=== PATIENT | female | born 1995 | race Caucasian/White ===

== ENCOUNTER 2019-02-26 17:33 | Emergency (ER) | payer OTHER ==
--- NOTE | 2019-02-26 18:08 | ER Document Report ---
HPI - HPI Patient complains to provider of: skin irritation around ostomy Time Seen by Provider: 02/26/19 17:40 Onset: Other - 2 weeks Onset/Duration: Persistent Quality of pain: Achy Severity: Moderate Pain Level: 3 Context: This 23-year-old female presents emergency department with complaints of skin irritation around her ostomy. Patient reports she has history of Crohn's. She had a colostomy placed 2 years ago. She reports approximately 2 weeks ago she started having skin irritation or where the pouch is on her skin. She reports s he has had this in the past and has been able to take care of it. This time it is not gone away. She reports she takes a shower every day keep the area very clean. She was seen by her primary care provider Dr. Coley who has referred her to the wound clinic. She has an appointment at 04 March. She reports in the meantime she is been taking Motrin for the pain which has not helped. She reports at times the skin will bleed. She has used skin prep on the area as well as skin powder without relief of symptoms. Associated Symptoms: None Exacerbated by: Other Relieved by: Denies Similar symptoms previously: Yes Recently seen / treated by doctor: Yes - CONSTITUTIONAL Constitutional: DENIES: Fever, Chills - REPRODUCTIVE LMP: 02/18/19 Reproductive: DENIES: : Past Medical History - General Information source: Patient - Social History Smoking Status: Unknown if Ever Smoked Cigarette use (# per day): No Frequency of alcohol use: Occasional Drug Abuse: None Occupation: [employer] Family History: None Patient has suicidal ideation: No Patient has homicidal ideation: No Renal/ Medical History: Denies: Hx Peritoneal Dialysis GI Medical History: Reports: Hx Crohn's Disease Past Surgical History: Reports: Hx Abdominal Surgery - colostomy placement Vertical Provider Document - CONSTITUTIONAL Agree With Documented VS: Yes Exam Limitations: No Limitations General Appearance: WD/WN, No Apparent Distress - INFECTION CONTROL TRAVEL OUTSIDE OF THE [place]. IN LAST 30 DAYS: No - HEENT HEENT: Atraumatic, Normocephalic - NECK Neck: Supple - RESPIRATORY Respiratory: No Respiratory Distress - CARDIOVASCULAR Cardiovascular: Regular Rate - GI/ABDOMEN Gastrointestinal: Abdomen Soft, Abdomen Non-Tender - MUSCULOSKELETAL/EXTREMETIES Musculoskeletal/Extremeties: ALAYNA HIGH - NEURO Level of Consciousness: Awake, Alert, Appropriate Motor/Sensory: No Motor Deficit - DERM Integumentary: Warm, Dry Adult Front & Back Diagram: 1 - ostomy in place with erythema around stoma, slight warmth. one small area ~ less than 1mm, pinprick size that looks like it could have bled. the posterior area below the ostomy has more erythema than the anterior portion. Course - Re-evaluation Re-evalutation: 02/26/19 19:25 This 23-year-old female with history of colostomy due to Crohn's presents today with complaints of skin irritation. Patient reports she is had skin irritation for the past 2 weeks. She has had this before but usually it goes away. She followed up with her primary care provider Dr. Coley and has been referred to the wound clinic. The area was cleaned with normal saline and soap. We utilized the hospital's ostomy paste and powder. The powder did not allow us to stick the pouch on easily even after it was moisturized but eventually we were able to secure the pouch. A prescription for nystatin powder was written for the patient. She was instructed to keep the area clean applied the power her barrier cream and foll ow-up with wound care clinic next week as scheduled. She verbalized understanding to all instructions. Dictation of this chart was performed using voice recognition software; therefore, there may be some unintended grammatical errors. - Vital Signs Vital signs: Temp Pulse Resp BP Pulse Ox 98.7 F 87 16 138/78 H 98 02/26/19 17:37 02/26/19 17:37 02/26/19 17:37 02/26/19 17:37 02/26/19 17:37 Discharge - Discharge Clinical Impression: ostomy skin irritation Condition: Stable Disposition: HOME, SELF-CARE Instructions: Nystatin ([facility]) Additional Instructions: *You have been treated for colostomy skin irritation *Monitor the site for signs of increasing infection such as increasing pain, redness, swelling, warmth *Keep the area clean *apply nystatin as prescribed- ). If necessary, the powder can be lightly blotted with a moist finger or skin sealant to assure a pouchable surface for skin barrier powder) *Follow up with the wound care clinic as scheduled next week *Return to ED for signs of increasing infection, worsening condition, changes, needs Prescriptions: Nystatin [Mycostatin Topical Powder 15 gm] 1 applic TP BID #1 bottle Referrals: PADMA COLEY MD [Primary Care Provider] - Follow up in 3-5 days [facility] [Provider Group] - Follow up in 1 week (follow up as scheduled)
[2019-02-26] MEDS ORDERED: OXYCODONE-ACETAMINOPHEN 5-325 MG TABLET PO ONE (19:23)
[2019-02-26] MEDS ORDERED: HYDROCODONE/ACETAMINOPHEN 5-325 MG (6 TAB/ER DISP) PO PRN (20:02)
[2019-02-26 20:26] VITALS: BP 134/77
== END 2019-02-26 20:27 | disposition home or self-care (01) ==
LOC: ER 17:33
DX: K94.09 Other complications of colostomy (principal)

== ENCOUNTER 2019-03-31 15:30 | Emergency (ER) | payer OTHER ==
[2019-03-31] MEDS ORDERED: PROCHLORPERAZINE EDISYLATE INJ 10 MG/2 ML VIAL IV ONE (15:39)
[2019-03-31] MEDS ORDERED: DIPHENHYDRAMINE HCL 50 MG/ML VIAL IV ONE (15:39)
[2019-03-31] MEDS ORDERED: KETOROLAC TROMETHAMINE INJ/PF 30 MG/1 ML SDV IV ONE (15:39)
[2019-03-31] MEDS ORDERED: NORMAL SALINE 1000 ML 1,000 ML IV ONE (15:39)
--- NOTE | 2019-03-31 15:40 | ER Document Report ---
ED Medical Screen (RME) - General Stated Complaint: VOMITING Time Seen by Provider: 03/31/19 15:39 Primary Care Provider: PADMA FINK MD [Primary Care Provider] - Follow up as needed Information source: Patient Notes: Patient presents complaining of migraine headache that started today. Patient reports light sensitivity with nausea and vomiting. Patient reports vomiting x1 episode. Patient denies any fever or head injury. hx: Crohn's, migraine, bowel resection, colostomy I have greeted and performed a rapid initial assessment of this patient. A comprehensive ED assessment and evaluation of the patient, analysis of test results and completion of the medical decision making process will be conducted by additional ED providers. TRAVEL OUTSIDE OF THE U.S. IN LAST 30 DAYS: No - Related Data Allergies/Adverse Reactions: No Known Allergies Allergy (Verified 03/31/19 15:38) Past Medical History Renal/ Medical History: Denies: Hx Peritoneal Dialysis GI Medical History: Reports: Hx Crohn's Disease Past Surgical History: Reports: Hx Abdominal Surgery - colostomy placement Physical Exam - Vital signs Vitals: Temp Pulse Resp BP Pulse Ox 98.6 F 93 14 134/79 H 97 03/31/19 15:33 03/31/19 15:03/31/19 15:03/31/19 15:03/31/19 15:33 - Neurological Neuro grossly intact: Yes Cognition: Normal Jacobson Coma Scale Eye Opening: Spontaneous Jacobson Coma Scale Verbal: Oriented Jacobson Coma Scale Motor: Obeys Commands Aminata Coma Scale Total: 15 Speech: Normal Course - Vital Signs Vital signs: Temp Pulse Resp BP Pulse Ox 98.6 F 93 14 134/79 H 97 03/31/19 15:03/31/19 15:03/31/19 15:03/31/19 15:03/31/19 15:33 Doctor's Discharge - Discharge Referrals: PADMA FINK MD [Primary Care Provider] - Follow up as needed
--- NOTE | 2019-03-31 17:50 | ER Document Report ---
ED General - General Chief Complaint: Headache Stated Complaint: VOMITING Time Seen by Provider: 03/31/19 15:39 Primary Care Provider: PADMA FINK MD [Primary Care Provider] - Follow up as needed TRAVEL OUTSIDE OF THE [place] IN LAST 30 DAYS: No - HPI Notes: Patient with history of migraines presents with migraine started earlier this morning. No recent fevers cough congestion chest pain shortness of breath or illnesses. She states the migraine is on the right side of her head and throbs down to the right side of her neck. She also has photophobia. She states this is similar to her many previous migraines. She does not take any medication for migraines or any abortive medications. Migraines cause her to have intermittent vomiting as well. - Related Data Allergies/Adverse Reactions: No Known Allergies Allergy (Verified 03/31/19 15:38) Past Medical History - General Information source: Patient - Social History Smoking Status: Never Smoker Family History: None Patient has suicidal ideation: No Patient has homicidal ideation: No Renal/ Medical History: Denies: Hx Peritoneal Dialysis GI Medical History: Reports: Hx Crohn's Disease Past Surgical History: Reports: Hx Abdominal Surgery - colostomy placement Review of Systems - Review of Systems Constitutional: No symptoms reported EENT: No symptoms reported Cardiovascular: No symptoms reported Respiratory: No symptoms reported Gastrointestinal: See HPI Genitourinary: No symptoms reported Female Genitourinary: No symptoms reported Musculoskeletal: No symptoms reported Skin: No symptoms reported Hematologic/Lymphatic: No symptoms reported Neurological/Psychological: See HPI Physical Exam - Vital signs Vitals: Temp Pulse Resp BP Pulse Ox 98.6 F 93 14 134/79 H 97 03/31/19 15:33 03/31/19 15:33 03/31/19 15:33 03/31/19 15:33 03/31/19 15:33 - General General appearance: Appears well, Alert - HEENT Head: Normocephalic, Atraumatic Eyes: Normal Pupils: PERRL - Respiratory Respiratory status: No respiratory distress Chest status: Nontender Breath sounds: Normal Chest palpation: Normal - Cardiovascular Rhythm: Regular Heart sounds: Normal auscultation Murmur: No - Back Back: Normal, Nontender - Neurological Neuro grossly intact: Yes Cognition: Normal Orientation: AAOx4 Speech: Normal Cranial nerves: Normal Cerebellar coordination: Normal Course - Re-evaluation Re-evalutation: 03/31/19 17:48 Ill-appearing patient was provided migraine cocktail by triage staff. Patient's headache if was rated at 10 when she came and is down now until 4 5. She is neurologically intact and her migraines are similar to previous. Will provide Compazine pills to help at home. He is seen at [facility] and also discussed with her that she is to speak to them about abortive medications such as ergotamine or sumatriptans - Vital Signs Vital signs: Temp Pulse Resp BP Pulse Ox 98.6 F 93 14 134/79 H 97 03/31/19 15:33 03/31/19 15:33 03/31/19 15:33 03/31/19 15:33 03/31/19 15:33 Discharge - Discharge Clinical Impression: Migraine Qualifiers: Migraine type: unspecified Status migrainosus presence: without status migrain osus Intractability: not intractable Qualified Code(s): G43.909 - Migraine, unspecified, not intractable, without status migrainosus Condition: Good Disposition: HOME, SELF-CARE Instructions: Headache ([facility]), Antinausea Medication ([facility]) Prescriptions: Metoclopramide HCl [Reglan 10 mg Tablet] 1 tab PO ASDIR PRN #25 tablet PRN Reason: Referrals: PADMA FINK MD [Primary Care Provider] - Follow up as needed
[2019-03-31 18:15] VITALS: BP 102/52
== END 2019-03-31 18:15 | disposition home or self-care (01) ==
LOC: ER 15:30
DX: G43.909 Migraine, unspecified, not intractable, without status migrainosus (principal); H53.149 Visual discomfort, unspecified; R11.10 Vomiting, unspecified
CPT/HCPCS: J1200; J1885; J0780; J7030; 96361; 96374; 96375; 99283

== ENCOUNTER → 2019-11-29 | Outpatient (CLI) | payer OTHER ==
--- NOTE | 2019-11-29 12:19 | ER RDC ASSESSMENT REPORT ---
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 - Symptoms Subjective Fever([place] feverish): No Chills: No Muscule Aches: No Runny Nose: Yes Sore Throat: Yes Cough (New or worsening chronic cough): No Shortness of breath: No Nausea or Vomiting: No Headache: Yes Abdominal Pain: No Diarrhea(3 or more loose stools in last 24 hours): No - Do you have any of the following Chronic lung disease: Asthma or emphysema or COPD: No Cystic Fibrosis: No Diabetes: No High Blood Pressure: No Cardiovascular Disease: No Chronic Kidney Disease: No Chronic Liver Disease: No Chronic blood disorder like Sickle Cell Disease: No Weak immune system due to disease or medication: No Neurologic condition that limits movement: No Developmental delay - Moderate to Severe: No Recent (within past 2 weeks) or current : No Morbid Obesity (>100 pounds over ideal weight): No Obesity Comment: Aniceto 5'4" weight 175 pounds Other Comment: History of Crohn's disease - Objective Temperature: 97.0 F Pulse Rate: 98 Respiratory Rate: 20 Blood Pressure: 136/83 O2 Sat by Pulse Oximetry: 98 Objective: Given above, testing performed: If Testing Performed: Test Specimen Type Sent to General - General Information source: Patient Notes: Patient here at [facility] for COVID testing. States started feeling sick with a runny nose sore throat and headache almost a week ago. Denies fever cough muscle aches or chills. Denies abdominal pain. Has not contacted PCP at [facility] but will later today. - Related Data Allergies/Adverse Reactions: No Known Allergies Allergy (Verified 03/31/19 15:38) Past Medical History - General Information source: Patient - Social History Smoking Status: Never Smoker Family History: None Renal/ Medical History: Denies: Hx Peritoneal Dialysis GI Medical History: Reports: Hx Crohn's Disease Past Surgical History: Reports: Hx Abdominal Surgery - colostomy placement Physical Exam - General General appearance: Appears well, Alert In distress: None Notes: PHYSICAL EXAMINATION: GENERAL: Well-appearing and in no acute distress. HEAD: Atraumatic, normocephalic. EYES: sclera anicteric, conjunctiva are normal. ENT: nares patent. Moist mucous membranes. NECK: Normal range of motion, supple without lymphadenopathy LUNGS: CTAB and equal. No wheezes rales or rhonchi. Resp even and unlabored lung sounds clear. HEART: Regular rate and rhythm without murmurs ABDOMEN: Soft, nontender, normal bowel sounds, no guarding. EXTREMITIES: No cyanosis. NEUROLOGICAL: Normal speech. PSYCH: Normal mood, normal affect. SKIN: Warm, Dry, normal turgor, - Respiratory Respiratory status: No respiratory distress Breath sounds: Normal Chest palpation: Normal Diagnostic Results Laboratory Results: Patient informed of negative rapid strep and negative rapid flu results. pending strep culture pending cover testing results. Provided instructions regarding COVID to include: As a person under investigation for Covid 19, the [facility] and Human Services, division of public health advises you to adhere to the following guidance until your test results are reported to you. If your test result is positive, you will receive additional information from your provider and your local health department at that time. Remain at home until you are cleared by the health provider or public health authorities. Keep a log of visitors to your home, notify any visitors to your home of your isolation status. If you plan to move to a new address or leave the [facility], notify the local health department in your [facility]. Call your doctor or seek care if you have an urgent medical need. Before seeking medical care, call ahead to get instructions from the provider before arriving at the medical office clinic or hospital. Notify them that you are being tested for the virus that causes Covid 19 so that arrangements can be made, as necessary, to prevent transmission to others in the healthcare setting. Next, notify the local health department in your county. If a medical emergency arises and you need to call 911, inform the first responders that you are being tested for the virus that causes Covid 19. Next, notify the local health department in your county. Patient Education/Counseling Counseling/Education: Patient presents with upper respiratory symptoms worrisome for possible Covid 19. Patient does not have emergency worring symptoms such as difficulty breathing, shortness of breath, chest pain, pressure, confusion or cyanosis. Patient appears suitable for discharge. Patient instructed to follow up with PCP today at [facility]. To ED For persistent or worsening symptoms. Patient's vital signs are stable and patient is nontoxic in appearance. Good return prec autions have been discussed with patient, patient verbalized understanding and is agreeable with discharge plan of care at this time. RDC Discharge - Discharge Clinical Impression: COVID - 19 SCREENING Upper respiratory infection Qualifiers: URI type: unspecified URI Qualified Code(s): J06.9 - Acute upper respiratory infection, unspecified Condition: Stable Disposition: Home; Selfcare
[2019-11-29 12:21] VITALS: BP 136/83
[2019-11-29 13:39] LABS: A TYPE INFLUENZA AG NEGATIVE (NEGATIVE); B INFLUENZA AG NEGATIVE (NEGATIVE)
== END ==
LOC: RDC 11:50
PROVIDERS: ATTEND Nurse Practitioner Family
DX: J06.9 Acute upper respiratory infection, unspecified (principal); Z20.828 Contact with and (suspected) exposure to other viral communicable diseases; J02.9 Acute pharyngitis, unspecified; R09.89 Other specified symptoms and signs involving the circulatory and respiratory systems; R51 Headache
CPT/HCPCS: 87070; 87635; 87804; 87880; 99211; C9803

== ENCOUNTER 2020-01-13 06:54 | Emergency (ER) | payer OTHER ==
[2020-01-13 07:52] LABS: APPEARANCE,URINE CLOUDY; BILIRUBIN,URINE NEGATIVE (NEGATIVE); COLOR,URINE YELLOW; GLUCOSE, URINE NEGATIVE (NEGATIVE); KETONES,URINE NEGATIVE (NEGATIVE); LEUKOCYTE ESTERASE,URINE MODERATE (NEGATIVE); NITRITE,URINE NEGATIVE (NEGATIVE); PROTEIN,URINE 30 mg/dL (NEGATIVE); URINE SPECIFIC GRAVITY 1.027; UROBILINOGEN,URINE NEGATIVE mg/dL (<2.0)
[2020-01-13 08:42] LABS: ABSOLUTE BASOPHILS # (AUTO) 0.1 10^3/uL (0.0-0.2); ABSOLUTE EOSINOPHILS # (AUTO) 0.8 10^3/uL (0.0-0.6); ABSOLUTE LYMPHOCYTES (AUTO) 2.1 10^3/uL (0.5-4.7); ABSOLUTE MONOCYTES (AUTO) 0.8 10^3/uL (0.1-1.4); ABSOLUTE NEUT (AUTO) 6.8 10^3/uL (1.7-8.2); BASOPHILS % (AUTO) 1.3 % (0-2); EOSINOPHILS % (AUTO) 7.7 % (0-6); HEMOGLOBIN 12.5 g/dL (12.0-15.5); LYMPHOCYTES % (AUTO) 19.9 % (13-45); MEAN CORPUSCULAR HGB CONC 35.6 g/dL (32.0-36.0); MEAN CORPUSCULAR VOLUME 84 fl (80-97); PLATELET COUNT 456 10^3/uL (150-450); RED BLOOD COUNT 4.16 10^6/uL (3.72-5.28); RED CELL DISTRIBUTION WIDTH 13.7 % (11.5-14.0); SEGMENTED NEUTROPHILS % (AUTO) 64.1 % (42-78); TOTAL CELLS COUNTED % (AUTO) 100 %; WHITE BLOOD COUNT 10.7 10^3/uL (4.0-10.5)
[2020-01-13 08:58] LABS: ALBUMIN 3.8 g/dL (3.5-5.0); ALKALINE PHOSPHATASE 75 U/L (38-126); ANION GAP 7 (5-19); ASPARTATE AMINO TRANSFERASE 23 U/L (14-36); BILIRUBIN,TOTAL 0.4 mg/dL (0.2-1.3); BLOOD UREA NITROGEN 9 mg/dL (7-20); CALCIUM 9.2 mg/dL (8.4-10.2); CARBON DIOXIDE 22 mmol/L (22-30); CHLORIDE 109 mmol/L (98-107); GLUCOSE 116 mg/dL (75-110); POTASSIUM 3.8 mmol/L (3.6-5.0)
[2020-01-13] MEDS ORDERED: NORMAL SALINE 1000 ML 1,000 ML IV ONE (08:59)
[2020-01-13] MEDS ORDERED: MORPHINE SULFATE 10 MG/ML INJ IV ONE (09:00)
[2020-01-13] MEDS ORDERED: ONDANSETRON HCL INJ/PF 4 MG/2 ML SDV IV ONE (09:01)
[2020-01-13] MEDS ORDERED: DIPHENHYDRAMINE HCL 50 MG/ML VIAL IV ONE (09:01)
--- NOTE | 2020-01-13 11:33 | RADIOLOGY REPORT (SQ) ---
EXAM DESCRIPTION: CT ABD/PELVIS ORAL ONLY IMAGES COMPLETED DATE/TIME: 01/13/2020 10:46 am REASON FOR STUDY: abd pain/crohns with colostomy. seafood allergy COMPARISON: None. TECHNIQUE: CT scan of the abdomen and pelvis performed without intravenous or oral contrast. Images reviewed with lung, soft tissue, and bone windows. Reconstructed coronal and sagittal MPR images revi ewed. All images stored on PACS. All CT scanners at this facility use dose modulation, iterative reconstruction, and/or weight based d osing when appropriate to reduce radiation dose to as low as reasonably achievable (ALARA). [facility]: Dose Right [facility]: CareDose [facility]: Dose Right [facility]: Teradose 4D [facility]: Smart Chevia RADIATION DOSE: CT Rad equipment meets quality standard of care and radiation dose reduction techniq ues were employed. CTDIvol: 10.3 mGy. DLP: 516 mGy-cm.mGy. LIMITATIONS: None. FINDINGS: LOWER CHEST: No significant findings. No nodules or infiltrates. NON-CONTRASTED LIVER, SPLEEN, ADRENALS: Evaluation limited by lack of IV contrast. Calcified left ad renal gland. No identified significant masses. PANCREAS: No masses. No peripancreatic inflammatory changes. GALLBLADDER: No calcified stones. No inflammatory changes to suggest cholecystitis. RIGHT KIDNEY AND URETER: No cysts identified. No solid masses. No calcified stones. No hydronephrosis or hydroureter. LEFT KIDNEY AND URETER: No cysts identified. No solid masses. No calcified stones. No hydronephrosis or hydroureter. AORTA AND RETROPERITONEUM: No aneurysm. No retroperitoneal masses or adenopathy. BOWEL AND PERITONEAL CAVITY: Mild wall thickening in the region of the terminal ileum and cecum. No obstruction or acute mesenteric inflammatory changes. Colostomy in the left lower quadrant. No free fluid. APPENDIX: Normal. PELVIS, BLADDER, AND ABDOMINAL WALL:No abnormal masses. No free fluid. Unremarkable bladder. BONES: No acute findings. Mild sacroiliitis, right greater than left. OTHER: No other significant finding. IMPRESSION: Mild wall thickening in the region of the terminal ileum and cecum. Otherwise, No acute inflammatory changes or free fluid. TECHNICAL DOCUMENTATION: JOB ID: [id number] [id number] Quality ID # [id number]: Final reports with documentation of one or more dose reduction techniques (e.g., Au tomated exposure control, adjustment of the mA and/or kV according to patient size, use of iterative reconstruction technique) 2010 [employer]- All Rights Reserved Reading location - IP/workstation name: [employer]
[2020-01-13] MEDS ORDERED: DICYCLOMINE HCL INJ 20 MG/2 ML AMPULE IM ONE (12:24)
--- NOTE | 2020-01-13 12:45 | ER Document Report ---
Entered by JOAN HUYNH SCRIBE 01/13/20 0849 Acting as scribe for:NANCY MCLEAN MD ED GI/ - General Chief Complaint: Abdominal Pain Stated Complaint: STOMACH PAINS Time Seen by Provider: 01/13/20 08:11 Primary Care Provider: PADMA FINK MD [Primary Care Provider] - Follow up as needed Information source: Patient Notes: This 24 year old female patient presents to the emergency department today with abdominal pain. Patient states she was woken up by abdominal pain yesterday morning and it went away after sleeping again. 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 Patient states the abdominal pain came back and caused her to feel faint and dizzy. Patient denies vomiting and states she has not drank water today. Patient states the pain is currently 3-4/5 and describes it as intermittent cramping. Patient states she has a history of Crohn's disease and has a colostomy bag placed, that is producing normal output with normal color. TRAVEL OUTSIDE OF THE [place].S[place] IN LAST 30 DAYS: No - Related Data Allergies/Adverse Reactions: No Known Allergies Allergy (Verified 03/31/19 15:38) Past Medical History - General Information source: Patient - Social History Smoking Status: Never Smoker Cigarette use (# per day): No Chew tobacco use (# tins/day): No Frequency of alcohol use: Occasional Drug Abuse: None Family History: None Patient has homicidal ideation: No Neurological Medical History: Reports: Hx Migraine GI Medical History: Reports: Hx Crohn's Disease Past Surgical History: Reports: Hx Abdominal Surgery - colostomy placement Review of Systems - Review of Systems Constitutional: No symptoms reported EENT: No symptoms reported Cardiovascular: See HPI, Dizziness Respiratory: No symptoms reported Gastrointestinal: See HPI, Abdominal pain. denies: Vomiting Genitourinary: No symptoms reported Female Genitourinary: No symptoms reported Musculoskeletal: No symptoms reported Skin: No symptoms reported Hematologic/Lymphatic: No symptoms reported Neurological/Psychological: No symptoms reported -: Yes All other systems reviewed and negative Physical Exam - Vital signs Vitals: Temp Pulse Resp BP Pulse Ox 98.0 F 113 H 20 152/86 H 96 01/13/20 07:02 01/13/20 07:02 01/13/20 07:02 01/13/20 07:02 01/13/20 07:02 - General General appearance: Appears well, Alert - HEENT Head: Normocephalic, Atraumatic Eyes: Normal Pupils: PERRL - Respiratory Respiratory status: No respiratory distress Chest status: Nontender Breath sounds: Normal Chest palpation: Normal - Cardiovascular Rhythm: Regular Heart sounds: Normal auscultation Murmur: No - Abdominal Inspection: Normal Distension: No distension Bowel sounds: Normal Tenderness: Tender, Guarding - mild - Extremities General upper extremity: Normal inspection. No: Edema General lower extremity: Normal inspection. No: Edema - Neurological Neuro grossly intact: Yes Cognition: Normal Orientation: AAOx4 Speech: Normal - Psychological Associated symptoms: Normal affect, Normal mood - Skin Skin Temperature: Warm Skin Moisture: Dry Skin Color: Normal Course - Re-evaluation Re-evalutation: 01/13/20 12:41 Patient states she still has abdominal pain at this time. I explained to patient CT scan of her abdomen and pelvis did not disclose that there was any obstruction. There was evidence of Crohn's disease with colonic wall thickening but no acute flare was noted. - Vital Signs Vital signs: Temp Pulse Resp BP Pulse Ox 98.0 F 113 H 20 152/86 H 96 01/13/20 07:02 01/13/20 07:02 01/13/20 07:02 01/13/20 07:02 01/13/20 07:02 01/13/20 12:42 Vital signs stable except for a tachycardia on arrival of 113. 01/13/20 12:42 Current heart rate 88 - Laboratory Result Diagrams: 01/13/20 08:10 01/13/20 08:10 Laboratory results interpreted by me: 01/13/20 01/13/20 01/13/20 07:22 08:10 08:10 WBC 10.7 H Hct 35.0 L Plt Count 456 H Eos % (Auto) 7.7 H Absolute Eos (auto) 0.8 H Chloride 109 H Glucose 116 H Urine Protein 30 H Ur Leukocyte Esterase MODERATE H 01/13/20 12:43 Laboratory results essentially within normal limits blood sugar 116 urine protein 30 moderate leukocyte esterase present in the urine but nitrite negative patient is not complaining of any urinary tract symptoms. - Diagnostic Test Radiology reviewed: Image reviewed, Reports reviewed Radiology results interpreted by me: 01/13/20 12:42 CT scan of abdomen and pelvis does not disclose any acute process patient does have colonic wall thickening consistent with her Crohn's disease but no obstruction was learned in your parent. Discharge - Discharge Clinical Impression: Abdominal pain, Crohn's disease Condition: Stable Disposition: HOME, SELF-CARE Instructions: Abdominal Pain ([facility]) Prescriptions: Dicyclomine HCl [Bentyl 20 mg Tablet] 20 mg PO QID PRN 5 Days #20 tablet PRN Reason: Abdominal Cramping Referrals: PADMA FINK MD [Primary Care Provider] - Follow up as needed I personally performed the services described in the documentation, reviewed and edited the documentation which was dictated to the scribe in my presence, and it accurately records my words and actions.
[2020-01-13 13:22] VITALS: BP 118/63
== END 2020-01-13 13:15 | disposition home or self-care (01) ==
LOC: ER 06:54
DX: K50.90 Crohn's disease, unspecified, without complications (principal); R10.9 Unspecified abdominal pain; R42 Dizziness and giddiness; Z93.3 Colostomy status
CPT/HCPCS: 99284; 96372; 96361; 96374; 96375; 36415; 83690; 85025; 81025; 80053; 81001; 74176; J0500; J1200; J2270; J2405; J7030